=== PATIENT | female | born 1970 | race Hispanic/Latino ===

== ENCOUNTER → 2019-11-09 | Outpatient (CLI) | payer BC ==
[~2019-11-09] MED LIST: ATORVASTATIN CA20 MG PO; GADOBENATE DIMEGLUMINE 1 ML IV ONE; IOPAMIDOL 300 MG/ML 15ML VIAL IT ONE; JANUMET XR 1001 EACH PO; LIDOCAINE HCL 1% LOCAL INJ 20 ML VIAL ONE; METOPROLOL TART50 MG PO; PROPYLTHIOURACI50 MG PO
--- NOTE | 2019-11-09 13:23 | Diagnostic Imaging Report ---
EXAM: INJECTION ARTHROGRAM SHOULDER, ARTHROCENTESIS-INT JOINT DATE: 11/09/2019 12:00 AM INDICATION: Right shoulder pain COMPARISON: None Physician performing procedure: Dr. Candi Galaviz PROCEDURES PERFORMED: Fluoroscopically-guided right glenohumeral joint arthrogram with MRI to follow Fluoro time: 1.0 Dose: 5.8mGy Anesthesia: Local, 1% lidocaine Devices: 22 gauge BD Quincke needle PROCEDURE REPORT: After written and verbal consent were obtained, the patient was placed supine on the fluoroscopy table with the right arm in external rotation. Using fluoroscopic guidance, sterile technique and local anesthesia, a 22 gauge, 3.5 inch needle was inserted percutaneously into the right glenohumeral joint. Proper placement was confirmed by injecting Isovue 300 into the joint under fluoroscopy. Next, 10cc of a 1:100 mixture of Multihance with Isovue 300 were then injected. Complications: None Blood loss: Minimal Samples: None Patient disposition: MRI in stable condition. IMPRESSION: Uncomplicated fluoroscopically-guided right glenohumeral joint arthrogram with MRI to follow. Contrast is within the joint. See MRI report for full findings. Signed by: Candi Galaviz MD on 11/09/2019 1:20 PM
--- NOTE | 2019-11-09 14:21 | Diagnostic Imaging Report ---
TECHNIQUE: Magnetic resonance arthrogram of the RIGHT SHOULDER was performed after intra-articular injected contrast. COMPARISON: None available. HISTORY: Right shoulder pain FINDINGS: MUSCLES AND TENDONS: Rotator Cuff: Tendons: Supraspinatus: Intact Infraspinatus: Intact Teres Minor: Intact Subscapularis: Intact Muscles: No focal muscle atrophy. Biceps Tendon: The long head of the biceps tendon is intact and within the intertubercular groove. GLENOHUMERAL JOINT: Glenoid Labrum: Small nondisplaced superior labral tear Articular Cartilage: No focal defect. AC JOINT AND ACROMION: Mild hypertrophic degenerative changes of the acromioclavicular joint. The acromion is laterally downsloping. BONE: No acute fracture. SOFT TISSUES: Otherwise, the soft tissues appear unremarkable. IMPRESSION: Intact rotator cuff Small nondisplaced superior labral tear Signed by: Dr. Charlie Chen M.D. on 11/09/2019 2:18 PM
== END ==
LOC: DX 11:39
PROVIDERS: ATTEND Orthopaedic Surgery
DX: M75.41 Impingement syndrome of right shoulder (principal); S43.421A Sprain of right rotator cuff capsule, initial encounter
CPT/HCPCS: 20605; 23350; 73222; A9577; Q9967; J2001

== ENCOUNTER → 2022-01-13 | Outpatient (CLI) | payer BC ==
[~2022-01-13] MED LIST changes: -GADOBENATE DIMEGLUMINE 1 ML IV ONE; -IOPAMIDOL 300 MG/ML 15ML VIAL IT ONE; -LIDOCAINE HCL 1% LOCAL INJ 20 ML VIAL ONE
== END ==
LOC: CT 16:57
PROVIDERS: ATTEND Family Medicine
DX: R10.9 Unspecified abdominal pain (principal); Z87.442 Personal history of urinary calculi
CPT/HCPCS: 74176